=== PATIENT | female | born 1945 | race Caucasian/White ===

== ENCOUNTER 2018-07-12 02:03 | Outpatient (CLI) | payer MEDICARE, OTHER, SELFPAY ==
[2018-07-12 13:14] LABS: CREATININE 0.85 mg/dL (0.55-1.02)
== END 2018-07-12 02:23 ==
DX: K59.9 Functional intestinal disorder, unspecified (principal)
CPT/HCPCS: 36415; 82565

== ENCOUNTER 2018-07-13 01:46 | Outpatient (CLI) | payer MEDICARE, OTHER, SELFPAY ==
--- NOTE | 2018-07-13 08:14 | DI.CT_ITS ---
SYMPTOMS/DIAGNOSIS: BOWEL DYSFUNCTION, ABDOMINAL DISCOMFORT, K59.9, 10.31, 10.32 CT OF THE ABDOMEN AND PELVIS: Comparison is made with November,. There is minimal scarring and bronchiectasis at the medial right lung base, unchanged. There has been interval increase in size of the previously noted hiatal hernia, now moderate in size. The liver, spleen, gallbladder, adrenals are unremarkable. The pancreas is mildly atrophic. Renal cysts are noted. There are no stones or hydronephrosis. The aorta shows mild calcification and is normal in diameter. There is a mild cystocele. A posterior pedunculated uterine fibroid is again noted. The patient is status post appendectomy. There is a normal quantity of stool. There are minimal scattered diverticula, but no evidence of diverticulitis. The small bowel is unremarkable. There is no adenopathy. Severe degenerative changes and scoliosis are again noted in the spine. IMPRESSION: Increased size of hiatal hernia. Mild cystocele.
[2018-07-13] MEDS: Omnipaque 350 MG/ML 50 ML BTL IJ (08:34)
[2018-07-13] MEDS: Omnipaque 350 MG/ML 100 ML BTL IJ (10:01)
[2018-07-13] MEDS: Normal Saline Flush 10 ML SYR IVP (10:02)
== END 2018-07-13 02:06 ==
DX: R10.31 Right lower quadrant pain (principal); R10.32 Left lower quadrant pain; K59.8 Other specified functional intestinal disorders; K44.9 Diaphragmatic hernia without obstruction or gangrene; N81.10 Cystocele, unspecified; K86.89 Other specified diseases of pancreas; D25.9 Leiomyoma of uterus, unspecified
CPT/HCPCS: 74177; J3490; Q9967

== ENCOUNTER 2018-08-23 09:29 | Emergency (ER) | payer MEDICARE, OTHER, SELFPAY ==
[2018-08-23 09:34] VITALS: BP 159/52; PULSE 63; RESP 16; TEMP 36.5; O2SAT 95
[2018-08-23 10:46] LABS: Bilirubin Negative (Negative); Blood Negative (Negative); Clarity Clear; Glucose Negative (Negative); Ketones Negative (Negative); Leukocyte Esterase Negative (Negative); Nitrite Negative (Negative); Urobilinogen 0.2 EU/dL (Up TO 0.2); pH 5.5 (5-8)
--- NOTE | 2018-08-23 14:56 | ED.GENADUL_ITS ---
Discharge Plan Disposition Patient Disposition: HOME Condition: Stable Discharge Details Chief Complaint: Nausea/Vomit/Diar Clinical Impression: Acute diarrhea Primary Care Provider: Shae Webb ED Provider: Arian Fitzpatrick Home Meds and New Rx's Prescriptions: Continued betamethasone, augmented 50 GM cream 50 gm Topical BID Qty: 1 RF: 0 loratadine 10 MG tablet 10 mg PO DAILY PRNQty: 30 RF: 6 Diclofenac Sodium 50 MG TABLET.DR 50 mg PO bid prn Qty: 180 RF: 4 atorvastatin 10 mg tablet 10 mg PO DAILY Qty: 90 RF: 3 fluticasone propionate 50 mcg/actuation spray,suspension 50 mcg NS BID Qty: 1 RF: 6 albuterol sulfate [Proventil HFA] 90 mcg/actuation HFA aerosol inhaler 2 puff IH Q4H PRN (Reason: shortness of breath or wheezing) Qty: 18 RF: 2 Discharge Instructions Instructions: Acute Diarrhea (ED) Additional Instructions: Continue to stay well-hydrated and please collect stool specimen and present to the lab within 2 hours of collecting the specimen. Feel free to return the emergency department if you develop a fever chills, nausea vomiting, abdominal pain or worsening symptoms. Otherwise follow-up with your primary care provider in 1 week for reassessment Referrals: Shae Webb, [employer]VE[employer]MENT [employer] ANALYST [Primary Care Provider] - 1 week Discharge Data Discharge Date/Time-TO BE ENTERED AT DEPARTURE: 08/23/18 15:06 Medical Decision Making two weeks of diarrhea, no other symptoms but seeing white rice-like material, no fever no chills no vomiting no blood no mucus. Plan to obtain a stool specimen otherwise vital signs are stable and see no signs of dehydration and patient stating that she is not having more bowel movements than normal just to change in consistency and appearance. Physical exam unremarkable. Patient attempted to provide specimen but was unable to. Pt. given outpatient orders were given and clear instructions on timeframe patient should present with specimen. Informed patient we will call her with any results that require treatment otherwise after shared decision-making process she refused empiric antibiotics at this time which I feel is reasonable given no fever no chills and benign exam. Patient encouraged to stay well-hydrated and follow-up with primary care provider in 1 week if symptoms have not resolved. Patient was instructed on use of probiotic and daily use. After discussion of diagnosis and plan of care patient has no further needs, questions, or concerns and states clear understanding to return to the emergency department for any worsening symptoms. HPI General Mode of arrival: ambulatory . Date/Time Provider Initiated Documentation: 08/23/18 09:49 . Limitations to Documentation: no limitations . Information obtained by: patient and RN notes reviewed . History of Present Illness 73 year old F presents to the emergency department with the chief complaint of Diarrhea, Quality is described as other (Denies pain), Patient started experiencing this week(s) (2) and it has been constant. No relieving factors improve symptom(s), No exacerbating factors reported . Patient notes no other symptoms.. Patient did receive the following treatments prior to arrival, none Related Data Home Medications Medication Instructions Recorded Confirmed betamethasone, augmented 50 gm TOPICAL BID #1 script 12/01/16 08/23/18 loratadine 10 mg PO DAILY PRN #30 tab-cap 06/09/17 08/23/18 atorvastatin 10 mg tablet 10 mg PO DAILY #90 tab-cap 05/09/18 08/23/18 fluticasone propionate 50 50 mcg NS BID #1 bottle 06/16/18 08/23/18 mcg/actuation nasal spray,suspension albuterol sulfate HFA 90 2 puff IH Q4H PRN #18 gm 06/23/18 08/23/18 mcg/actuation aerosol inhaler Previous Rx's Medication Instructions Recorded atorvastatin 10 mg tablet 10 mg PO DAILY #90 tab-cap 05/09/18 fluticasone propionate 50 50 mcg NS BID #1 bottle 06/16/18 mcg/actuation nasal spray,suspension albuterol sulfate HFA 90 2 puff IH Q4H PRN #18 gm 06/23/18 mcg/actuation aerosol inhaler Allergies Allergy/AdvReac Type Severity Reaction Status Date / Time prochlorperazine Allergy Unknown Verified 08/23/18 09:39 General Stated Complaint: Nausea/Vomit/Diar MARINA: 4 Review of Systems Constitutional Denies chills, Denies fever(s) and Denies poor appetite Cardiovascular Denies chest pain and Denies dyspnea Respiratory Denies cough and Denies dyspnea Gastrointestinal Reports as per HPI, Denies abdominal pain, Denies melena, Denies change in bowel habits, Denies constipation, Reports diarrhea, Denies nausea and Denies vomiting Genitourinary Denies hematuria, Denies urinary incontinence, Denies urinary hesitancy and Denies urinary urgency Integumentary/Breasts Denies rash [facility] Medical History Lumbar facet joint pain (Acute) Idiopathic scoliosis (Acute 04/25/12) Abnormal Papanicolaou smear of cervix with positive human papilloma virus (HPV) test Benign microscopic hematuria Hyperlipidemia Hypertension Ovarian cyst Prolapse of female pelvic organs RLQ abdominal pain Renal cyst, acquired, left Vaginal discharge Surgical History Appendectomy (~1968) Open Carpal Tunnel release (~2007) Skin Cancer Removal (~1991) Family History Mother Neoplasm Father Neoplasm Sister No problems noted. Grandfather No problems noted. Grandfather No problems noted. Grandmother No problems noted. Grandmother No problems noted. Son No problems noted. Daughter No problems noted. Social History Smoking/Tobacco Use Status: Never Drug use: Never Do you feel safe at home: Yes Do you feel safe in your relationship?: Yes Exam Const General: cooperative Orientation: alert, awake and oriented x3 HENMT Mouth: moist mucous membranes Resp Effort & Inspection: normal respiratory effort and able to speak in complete sentences Auscultation: clear to auscultation bilaterally Cardio Rate: regular rate Rhythm: regular rhythm Heart Sounds: S1 normal and S2 normal GI Palpation: soft, no hepatosplenomegaly, not firm, no guarding, no masses, no pulsatile masses, not rigid, no splenomegaly and nontender Auscultation: normal bowel sounds Back/Spine/Pelvis Back: no CVA tenderness Neuro General: alert, awake, oriented x3, gait normal and moves all extremities Course Vital Signs Temperature 36.5 C 08/23/18 09:34 Pulse 63 08/23/18 09:34 Respiratory Rate 16 08/23/18 09:34 Blood Pressure 159/52 H 08/23/18 09:34 Pulse Oximetry 95 08/23/18 09:34 Temperature 36.5 C 08/23/18 09:34 Temperature Source Temporal Artery Scan 08/23/18 09:34 Pulse 63 08/23/18 09:34 Respiratory Rate 16 08/23/18 09:34 Respiratory Effort Non-Labored 08/23/18 09:36 Blood Pressure 159/52 H 08/23/18 09:34 Blood Pressure Position Sitting 08/23/18 09:34 Pulse Oximetry 95 08/23/18 09:34 Oxygen Delivery Method Room Air 08/23/18 09:34 Oxygen Flow Rate 0 08/23/18 09:34 Pain Level 0 08/23/18 09:34 Lab/Test Results Lab/Test Results: 08/23/18 10:27 Stool Clostridioides difficile Screen - Pending Laboratory Tests Range/Units 08/23/18 10:37 Urine Color (Yellow) Yellow Urine Clarity Clear Urine pH (5-8) 5.5 Ur Specific [place] (1.005-1.025) 1.010 Urine Protein (Negative) mg/dL Negative Urine Ketones (Negative) mg/dL Negative Urine Blood (Negative) Negative Urine Nitrite (Negative) Negative Urine Bilirubin (Negative) Negative Urine Urobilinogen (Up TO 0.2) EU/dL 0.2 Ur Leukocyte Esterase (Negative) Negative Urine Glucose (Negative) mg/dL Negative
== END 2018-08-23 15:06 | disposition home or self-care (01) ==
PROVIDERS: Emergency Provider Nurse Practitioner Family
DX: R19.7 Diarrhea, unspecified (principal); I10 Essential (primary) hypertension
CPT/HCPCS: 87329; 87505; 99282; 81003; 87324

== ENCOUNTER 2018-08-24 07:43 | Outpatient (REF) | payer MEDICARE, OTHER, SELFPAY ==
[2018-08-25 10:47] LABS: Campylobacter PCR SEE COMMENTS; Salmonella PCR SEE COMMENTS; Shiga Toxin PCR SEE COMMENTS; Shigella/Enteroinvasive Ecoli SEE COMMENTS
== END 2018-08-24 08:03 ==
LOC: LBN 07:43
PROVIDERS: Visit Provider Nurse Practitioner Family
DX: R19.7 Diarrhea, unspecified (principal)
CPT/HCPCS: 87329; 87505; 82272; 83630; 87177; 87324

== ENCOUNTER 2018-09-05 07:55 | Outpatient (CLI) | payer MEDICARE, OTHER, SELFPAY | END 2018-09-05 08:15 | DX: E78.5 Hyperlipidemia, unspecified (principal) | CPT/HCPCS: 36415; 80053; 80061; 83721; 85027 ==

== ENCOUNTER 2018-09-12 07:00 | Outpatient (REF) | payer MEDICARE, OTHER, SELFPAY | END 2018-09-12 07:20 | LOC: LBN 07:00 | DX: R19.7 Diarrhea, unspecified (principal); R63.4 Abnormal weight loss | CPT/HCPCS: 87177 ==

== ENCOUNTER 2018-09-13 12:50 | Outpatient (REF) | payer MEDICARE, OTHER, SELFPAY ==
[2018-09-14 12:04] LABS: Campylobacter PCR SEE COMMENTS; Salmonella PCR SEE COMMENTS; Shiga Toxin PCR SEE COMMENTS; Shigella/Enteroinvasive Ecoli SEE COMMENTS
== END 2018-09-13 13:10 ==
LOC: LBN 12:50
DX: R19.7 Diarrhea, unspecified (principal); R63.4 Abnormal weight loss
CPT/HCPCS: 87505; 87177

== ENCOUNTER 2018-09-14 13:42 | Outpatient (REF) | payer MEDICARE, OTHER, SELFPAY | END 2018-09-14 14:02 | LOC: LBN 13:42 | DX: R19.7 Diarrhea, unspecified (principal); R63.4 Abnormal weight loss | CPT/HCPCS: 83630; 87177; 87324 ==

== ENCOUNTER 2018-10-18 01:14 | Outpatient (CLI) | payer MEDICARE, OTHER, SELFPAY ==
--- NOTE | 2018-10-18 10:53 | DI.RAD_ITS ---
SYMPTOM/DIAGNOSIS: DUODENAL ULCER WITHOUT BLEEDING, K26.3, ACUTE GASTRIC ULCER WITHOUT BLEEDING, K25.4, ? PERIESOPHAGEAL HERNIA UPPER GI: Fluoroscopy Time: 53 seconds Tongue And Quarter Stitcher view of the abdomen shows increased stool throughout the colon. There is no small bowel dilatation. There is severe scoliosis as well as degenerative changes in the lumbar spine. The patient swallowed barium without difficulty. The esophageal peristalsis appears normal. On the upright images, the GE junction is located in a normal position and a portion of the fundus is seen herniating above the diaphragm. On the supine and prone images, the fundus of the stomach extends through the hiatus. Gastroesophageal reflux was observed during the exam. There is suboptimal gastric coating. No ulcers are identified. There is normal gastric emptying. The proximal small bowel is unremarkable. IMPRESSION: Sliding hiatal hernia and gastroesophageal reflux.
[2018-10-18] MEDS: Barium Sulfate 60% W/V 355 ML BTL PO (11:11)
== END 2018-10-18 01:34 ==
PROVIDERS: Visit Provider Internal Medicine Gastroenterology
DX: K26.3 Acute duodenal ulcer without hemorrhage or perforation (principal); K21.9 Gastro-esophageal reflux disease without esophagitis; K44.9 Diaphragmatic hernia without obstruction or gangrene
CPT/HCPCS: 74247; J3490

== ENCOUNTER 2018-11-11 04:17 | Outpatient (CLI) | payer MEDICARE, OTHER, SELFPAY ==
[2018-11-11 11:13] LABS: ALT 35 U/L (12-78); AST 33 U/L (15-37); Albumin 3.8 g/dL (3.4-5.0); Alkaline Phosphatase 74 U/L (46-116); Anion Gap 9.7 mmol/L (3-11); BUN 16 mg/dL (7-18); CO2 27.3 mmol/L (21.0-32.0); CREATININE 0.83 mg/dL (0.55-1.02); Calcium 9.1 mg/dL (8.5-10.1); Calculated LDL 151 mg/dL; Chloride 107 mmol/L (98-107); Cholesterol 232 mg/dL (50-200); Glucose 87 mg/dL (70-100); HDL Cholesterol 43 mg/dL (40-60); Potassium 4.1 mmol/L (3.5-5.1); Sodium 144 mmol/L (136-145); Total Protein 6.7 g/dL (6.4-8.2); Triglyceride 194 mg/dL (30-150)
== END 2018-11-11 04:37 ==
DX: E78.5 Hyperlipidemia, unspecified (principal); F32.9 Major depressive disorder, single episode, unspecified; I10 Essential (primary) hypertension; K59.9 Functional intestinal disorder, unspecified; N95.2 Postmenopausal atrophic vaginitis; R63.4 Abnormal weight loss
CPT/HCPCS: 36415; 80053; 80061; 83721

== ENCOUNTER 2018-12-07 01:02 | Outpatient (CLI) | payer MEDICARE, OTHER, SELFPAY ==
--- NOTE | 2018-12-07 11:26 | DI.MAMMO_ITS ---
SYMPTOMS/DIAGNOSIS: SCREENING, Z12.31 MAMMOGRAM: Mammograms were interpreted according to the usual protocol including computer analysis with CAD system, tomosynthesis and C view imaging. The breasts are of moderate density with fairly symmetrical distribution of fibroglandular tissue. No dominant mass or clumped microcalcification identified in either breast. Current examination is compared with the previous examinations including August 2016 and there has been no gross interval change in appearance in comparison with the previous studies. CONCLUSION: No specific evidence of malignancy at this time. Routine screening examinations are suggested at yearly intervals in this age group according to the ACS/ACR guidelines. Category 1, breast density category B. MQSA ASSESSMENT OF FINDINGS: Negative. Category 1. Patient will receive a letter notifying them of these results. BI-RADS category B. There are scattered areas of fibroglandular density.
== END 2018-12-07 01:22 ==
DX: Z12.31 Encounter for screening mammogram for malignant neoplasm of breast (principal)
CPT/HCPCS: 77063; 77067

== ENCOUNTER 2018-12-26 11:52 | Outpatient (REF) | payer MEDICARE, OTHER, SELFPAY ==
[2018-12-26 15:38] LABS: Bilirubin Negative (Negative); Blood Negative (Negative); Clarity Clear (Clear); Glucose Negative (Negative); Ketones Negative (Negative); Leukocyte Esterase Large (Negative); Nitrite Negative (Negative); Urobilinogen 0.2 EU/dL (Up TO 0.2)
[2018-12-26 15:43] LABS: C & S Indicated? C&S Done As Ordered
[2018-12-26 16:03] LABS: RBC Negative (0-2); WBC >50 HPF (0-5)
[2018-12-26 16:05] LABS: Bacteria Few HPF (Negative); Casts Negative LPF (Negative); Crystals Negative HPF (Negative); Epithelial Cells Few HPF (Negative); Mucus Negative (Negative)
== END 2018-12-26 12:12 ==
LOC: LBN 11:52
PROVIDERS: Visit Provider Nurse Practitioner Family
DX: R82.90 Unspecified abnormal findings in urine (principal)
CPT/HCPCS: 81003; 81015; 87086

== ENCOUNTER 2019-09-14 02:38 | Outpatient (CLI) | payer MEDICARE, OTHER, SELFPAY ==
--- NOTE | 2019-09-14 06:15 | DI.MRI_ITS ---
EXAM: MR LUMBAR SPINE WO CLINICAL HISTORY: REFERRAL TO PAIN CLINIC AFTER FAILED PT TREATMENT, LUMBAR FACET JOINT PAIN, SCOLIO SIS, BACK PAIN, M19.90, M54.5, M41.20. TECHNIQUE: Multiplanar multisequence MRI of the Lumbar spine was performed. COMPARISON: CR CHEST 2 VIEWS PA,LAT from 10/20/[address] ABDOMEN PELVIS W from 07/13/2018 CR,RF RF upper GI series from 10/18/2018 FINDINGS: The exam is limited by severe scoliosis. Bones: The last intervertebral disc space is designated the L5/S1 level for the numbering purpose of this examination. The vertebral body heights are well kiki ntained. There are several high T1 signal lesions in multiple vertebral bodies, consistent with marquita ngiomas or fatty rests. Cord: The conus tip ends at the T12 L1 level. It is of normal size and signal intensity. T12-L1: Severe loss of disc height and prominent disc osteophytes, eccentric toward the right. No si gnificant central canal stenosis or neural foraminal narrowing. L1-2: Broad-based disc osteophytes and severe disc space narrowing. Severe facet degenerative change s on the left. Severe bilateral neural foraminal narrowing. L2-3: Moderate to severe loss of disc height, eccentric toward the left. Prominent broad-based disc osteophytes, eccentric toward the left. Facet degenerative changes, greater on the left. Mild centr al canal stenosis. Severe left neural foraminal narrowing. L3-4: Severe loss of disc height and broad-based disc osteophytes. Facet degenerative changes and li gamentous hypertrophy combine to produce a moderate degree of central canal stenosis as well as sever e bilateral neural foraminal narrowing. L4-5: Loss of disc height eccentric toward the right. Broad-based disc osteophytes eccentric toward the right. Severe facet degenerative changes, right greater than left, as well as ligamentous hypert rophy. Severe central canal stenosis. L5-S1: Normal disc height. Mild disc bulging. Prominent facet joint degenerative changes. Mild rig ht neural foraminal narrowing. No central canal stenosis. Soft tissues: The visualized SI joints and sacrum are well maintained. The paraspinal soft tissues ar e unremarkable. A left renal cyst is incidentally noted. The aorta is normal in diameter where visua lized. There is significant muscular atrophy involving the paraspinal muscles. IMPRESSION: Severe degenerative disc changes and facet degenerative changes as well as scoliosis. There is multi level neural foraminal narrowing. Central canal stenosis is most severe at L4-5. DATA REPOSITORY:
== END 2019-09-14 02:58 ==
DX: M54.5 Low back pain (principal); M41.27 Other idiopathic scoliosis, lumbosacral region; M51.37 Other intervertebral disc degeneration, lumbosacral region
CPT/HCPCS: 72148

== ENCOUNTER 2019-10-24 14:49 | Outpatient (CLI) | payer MEDICARE, OTHER, SELFPAY ==
--- NOTE | 2019-10-24 06:00 | DI.RAD_ITS ---
EXAM: XR PAIN CLINIC LUMBAR SP 2V CLINICAL HISTORY: Dx: Lumbar Radiculopathy. TECHNIQUE: Fluoroscopy was provided for Dr. Cleveland For guidance with performing injection procedure. COMPARISON: No exams were available for comparison FINDINGS: Please see procedure note for details. Fluoro Time: 27.6 seconds RADIATION DOSE DELIVERED:
[2019-10-24 15:51] VITALS: BP 134/82; PULSE 90; RESP 17; TEMP 37.2; O2SAT 96
--- NOTE | 2019-10-24 16:27 | PDOC.PAIN ---
Pain Clinic Procedure Note Procedure Note Procedure Note: Lumbar Epidural Steroid Injection Procedure Note Pre-operative diagnosis: lumbar spinal stenosis with neurogenic claudication Post-operative diagnosis: same as above COMMENTS: patient has been evaluated in clinic by Ms Sandrine APRN. MRI L spine reviewed which shows canal stenosis most severe at L4-5. Patient reports back pain with radiation down bilateral legs. KURT GALVEZ has been referred to the [facility] for lumbar epidural steroid injection. The patient was greeted by the nurse who verified patients name and . Patient was then taken to the fluoroscopy suite. The patient was interviewed and the medial record reviewed. There were no medical, pharmacologic, radiographic, or other structural contraindications to attempting fluoroscopically guided lumbar epidural steroid injection. Risks and expected side effects as well as potential benefits of the procedure were reviewed and voiced concerns expressed. The patient consent form was signed and witnessed. Standard patient time-out procedure was performed. The patient was placed in the prone position on the fluoroscopy table and automated blood pressure cuff and pulse oximeter applied. The skin entry point for entering/approaching the epidural space by a L5-S1 and marked. Following thorough chlorhexadine preparation of the skin and draping and 1% lidocaine infiltration of the skin entry point and subcutaneous tissues, a 18 gauge 3.5'' Touhy needle was placed under fluoroscopic guidance and with loss of resistance technique into the epidural space. Needle tip placement and depth were aided and confirmed by fluoroscopy. There was no paresthesia or return of blood or CSF through the needle. 1 cc's of Omnipaque 240 was injected with clear epidural spread confirmed with fluoroscopy. 80mg depomedrol was injected. There was not any unusual discomfort expressed by KURT GALVEZ. Patient's vital signs were stable throughout the procedure and were as recorded in nursing records. Follow up plans and appointments were discussed with patient. Post procedure instruction was given as documented in nursing records and having met discharge criteria and was discharged from the [facility]. COMMENTS: If this procedure is helpful, it can be completed up to 3 times per 12 months. please note that due to patient's body habitus, for future injections, please consider 18 gauge 5'' Touhy needle I personally performed the entire procedure. Trudi Cleveland MD Pain Management
[2019-10-24] MEDS: methylPREDNISolone ACETATE 80 MG/ML VIAL IJ (16:53)
[2019-10-24] MEDS: Omnipaque 240 MG/ML 50 ML BTL IJ (16:53)
[2019-10-24 17:02] VITALS: BP 119/87; PULSE 78; RESP 15; O2SAT 97
== END 2019-10-24 15:09 ==
PROVIDERS: Visit Provider Internal Medicine
DX: M48.062 Spinal stenosis, lumbar region with neurogenic claudication (principal)
CPT/HCPCS: 62323; 72100; J1040; Q9967

== ENCOUNTER 2019-12-11 00:45 | Outpatient (CLI) | payer MEDICARE, OTHER, SELFPAY ==
--- NOTE | 2019-12-11 12:50 | DI.MAMMO_ITS ---
EXAM: MG MAMMO SCREENING CLINICAL HISTORY: screening,Z12.39 TECHNIQUE: Mammograms were interpreted according to the usual protocol including computer analysis w [employer] CAD system, tomosynthesis and C-view imaging. COMPARISON: FINDINGS: The breasts are of moderate density with fairly symmetrical distribution of fibroglandular tissue. N o dominant mass or clumped microcalcification is identified in either breast. The current examinatio n is compared with previous examinations including November 2018 and there has been no gross interval c hange in appearance comparison with previous studies. Tiny of focus of questionable architectural di stortion clearly seen only on tomosynthesis views and associated with 2 macrocalcifications is noted in the central portion of the right breast, this is unchanged in comparison previous films dating lane k to 2015. IMPRESSION: No specific evidence of malignancy at this time. Routine screening examinations are suggested at yea rly intervals in this age group according to the ACS ACR guidelines. BI-RADS Category 1 - Negative Breast Density - Category B - Scattered areas of fibroglandular density
== END 2019-12-11 01:05 ==
DX: Z12.31 Encounter for screening mammogram for malignant neoplasm of breast (principal); R92.2 Inconclusive mammogram
CPT/HCPCS: 77063; 77067

== ENCOUNTER 2019-12-12 08:48 | Outpatient (CLI) | payer MEDICARE, OTHER, SELFPAY ==
[2019-12-12 08:56] VITALS: BP 112/70; PULSE 83; RESP 16; TEMP 37.2; O2SAT 94
[2019-12-12] MEDS: Omnipaque 240 MG/ML 50 ML BTL IJ (09:30)
[2019-12-12 09:31] VITALS: BP 134/66; PULSE 90; RESP 16; O2SAT 94
[2019-12-12] MEDS: methylPREDNISolone ACETATE 80 MG/ML VIAL IJ (09:31)
--- NOTE | 2019-12-12 09:31 | DI.RAD_ITS ---
EXAM: XR PAIN CLINIC LUMBAR SP 2V CLINICAL HISTORY: Dx: Lumbar Radiculopathy TECHNIQUE: 2D and realtime digital imaging was performed. Fluoroscopy was provided in the OR COMPARISON: No exams were available for comparison FINDINGS: C-arm fluoroscopy was utilized by Dr. Cleveland during lumbar epidural steroid injection. Hard copy shows m idline injection posteriorly at what appears to be the L5-S1 level. Fluoro time, 31 seconds. IMPRESSION: RADIATION DOSE DELIVERED: Total DLP
--- NOTE | 2019-12-12 09:40 | PDOC.PAIN_ITS ---
Pain Clinic Procedure Note Procedure Note Procedure Note: Lumbar Epidural Steroid Injection Procedure Note Pre-operative diagnosis: lumbar spinal stenosis Post-operative diagnosis: same as above COMMENTS: patient received ~1 week of excellent pain relief from prior L5-S1 LESI, however her back pain returned to baseline. She reports preodminantly back pain, she does have difficulty walking for more than 50 yards but she again expressed that most of her pain is across her lower back. KURT GALVEZ has been referred to the [facility] for lumbar epidural steroid injection. The patient was greeted by the nurse who verified patients name and . Patient was then taken to the fluoroscopy suite. The patient was interviewed and the medial record reviewed. There were no medical, pharmacologic, radiographic, or other structural contraindications to attempting fluoroscopically guided lumbar epidural steroid injection. Risks and expected side effects as well as potential benefits of the procedure were reviewed and voiced concerns expressed. The patient consent form was signed and witnessed. Standard patient time-out procedure was performed. The patient was placed in the prone position on the fluoroscopy table and automated blood pressure cuff and pulse oximeter applied. The skin entry point for entering/approaching the epidural space by L5-S1 and marked. Following thorough chlorhexadine preparation of the skin and draping and 1% lidocaine inf iltration of the skin entry point and subcutaneous tissues, a 5'' Touhy needle was placed under fluoroscopic guidance and with loss of resistance technique into the epidural space. Needle tip placement and depth were aided and confirmed by fluoroscopy. There was no paresthesia or return of blood or CSF through the needle. 1 cc's of Omnipaque 240 was injected with clear epidural spread confirmed with fluoroscopy. 80mg depomedrol was injected. There was not any unusual discomfort expressed by KURT GALVEZ. Patient's vital signs were stable throughout the procedure and were as recorded in nursing records. Follow up plans and appointments were discussed with patient. Post procedure instruction was given as documented in nursing records and having met discharge criteria and was discharged from the [facility]. COMMENTS: If this procedure is helpful, it can be completed up to 3 times per 12 months. I personally performed the entire procedure. Trudi Cleveland MD Pain Management
== END 2019-12-12 09:08 ==
PROVIDERS: Visit Provider Internal Medicine
DX: M48.061 Spinal stenosis, lumbar region without neurogenic claudication (principal)
CPT/HCPCS: 62323; 72100; J1040; Q9967

== ENCOUNTER 2020-01-10 09:41 | Outpatient (REF) | payer MEDICARE, OTHER, SELFPAY ==
[2020-01-15 12:18] LABS: Campylobacter PCR Negative (Negative); Salmonella PCR Negative (Negative); Shiga Toxin PCR Negative (Negative); Shigella/Enteroinvasive Ecoli Negative (Negative)
== END 2020-01-10 10:01 ==
LOC: LBN 09:41
PROVIDERS: Visit Provider Physician Assistant
DX: R19.7 Diarrhea, unspecified (principal)
CPT/HCPCS: 87505; 87324

== ENCOUNTER 2020-01-12 04:02 | Outpatient (CLI) | payer MEDICARE, OTHER, SELFPAY ==
--- NOTE | 2020-01-12 07:15 | DI.RAD_ITS ---
EXAM: XR KNEE RT 3V AP,LAT,WILIAM CLINICAL HISTORY: knee pain, right with edema,M26.561,M25.461,EFFUSION. TECHNIQUE: 2D digital imaging was performed. COMPARISON: CR CHEST 2 VIEWS PA,LAT from 10/20/2017 FINDINGS: Marked degenerative changes are seen in the right knee characterized by joint space narrowing subchon dral sclerosis and periarticular spurring. The findings are most marked in the lateral femoral tibia l joint. There is a small joint effusion present. Soft tissues are otherwise unremarkable. No acut e fracture or dislocation. IMPRESSION: Marked osteoarthritis of the right knee. DATA REPOSITORY: RADIATION DOSE DELIVERED:
== END 2020-01-12 04:22 ==
DX: M17.11 Unilateral primary osteoarthritis, right knee (principal); M25.461 Effusion, right knee
CPT/HCPCS: 73562

== ENCOUNTER 2020-03-04 17:03 | Outpatient (CLI) | payer MEDICARE, OTHER, SELFPAY ==
--- NOTE | 2020-03-04 13:00 | DI.RAD_ITS ---
EXAM: XR ELBOW LT COMPLETE CLINICAL HISTORY: LT ELBOW PAIN,M25.522. TECHNIQUE: 2D digital imaging was performed. COMPARISON: No exams were available for comparison FINDINGS: The patient is status post prior radial head resection. There is marked deformity of the elbow joint with marked joint space narrowing and subchondral sclerosis. The articular surface of the distal hu merus is deformed. No acute fracture or dislocation. No definite effusion. The soft tissues are un remarkable. IMPRESSION: 1. 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 2. Prior resection of the proximal radius. DATA REPOSITORY: RADIATION DOSE DELIVERED:
== END 2020-03-04 17:23 ==
DX: M19.022 Primary osteoarthritis, left elbow (principal)
CPT/HCPCS: 73080

== ENCOUNTER 2020-04-04 09:09 | Emergency (ER) | payer MEDICARE, OTHER, SELFPAY ==
--- NOTE | 2020-04-04 09:00 | RT.EKG_ITS ---
APPROVED REPORT Exam: Resting ECG Patient Location: E HR:85 bpm ECG Measurements Heart Rate 85 AXIS MT 209 P 33 QRSd 94 QRS -1 QT 383 T 10 QTc 455 Conclusion Sinus rhythm...normal P axis, V-rate 60- 99 Multiple ventricular premature complexes...V complexes w/ short R-R intervls Probable left atrial enlargement...P >50mS, <-0.10mV V1 I have reviewed and interpreted ECG and agree with software generated interpretation.
--- NOTE | 2020-04-04 09:05 | ED.GENADUL_ITS ---
Discharge Plan Disposition Patient Disposition: HOME Condition: Improving Discharge Details Clinical Impression: UTI (urinary tract infection), Fall at home, Joint pain Primary Care Provider: Shae Webb ED Provider: Lashell Mcnulty Home Meds and New Rx's Prescriptions: New cephalexin [Keflex] 500 mg capsule 500 mg PO BID 5 Days Qty: 10 RF: 0 Continued acetaminophen [Tylenol] 325 mg tablet 650 mg PO DAILY AM PRNRF: 0 sertraline 100 mg tablet 100 mg PO DAILY Qty: 90 RF: 3 trazodone 50 mg tablet 50 mg PO QHS PRN (Reason: sleep) Qty: 90 RF: 3 atorvastatin 10 mg tablet 10 mg PO DAILY Qty: 90 RF: 3 loratadine 10 mg tablet 10 mg PO DAILY Qty: 90 RF: 3 betamethasone, augmented 0.05 % cream 1 applic Topical BID PRNQty: 1 RF: 0 albuterol sulfate [Proventil HFA] 90 mcg/actuation HFA aerosol inhaler 2 puff IH Q4H PRN (Reason: shortness of breath or wheezing) Qty: 18 RF: 2 fluticasone propionate 50 mcg/actuation spray,suspension 50 mcg NS BID Qty: 1 RF: 6 omega 1-wrd-jji-fish oil [Fish Oil] 1,000 mg (120 mg-180 mg) Capsule 1 cap PO DAILY RF: 0 Discharge Instructions Instructions: Arthralgia (ED), Urinary Tract Infection in Older Adults (ED) Additional Instructions: Drink plenty of fluids and get plenty of rest. Alternate tylenol and motrin as needed and directed for pain. Take the antibiotics until finished. Call your primary care doctor's office today to confirm your follow-up appointment for the next 1 to 2 weeks. You can also discuss whether an outpatient teletypesetter monitor is indicated if your symptoms persist. Return immediately to the emergency department if you develop any worsening or new concerning symptoms. Discharge Data Discharge Date/Time-TO BE ENTERED AT DEPARTURE: 04/04/20 12:15 Discharge Physician: Lashell Mcnulty Medical Decision Making 3606 -- 75yo F with a history of depression, hypertension, hyperlipidemia presents for 2 falls out of bed since last night, without memory of the initial episode. Vitals within normal limits. EKG notes a rate of 85, sinus with PVCs but no acute ST-T wave ischemic changes. She is alert and oriented x3. She has no focal deficits. No evidence of trauma on exam. Differential diagnosis includes acute CVA, seizure, arrhythmia, electrolyte abnormality, dehydration, UTI, pneumonia, medication reaction to trazodone. We will place an IV, bolus IV fluids, screening labs, urinalysis, CT head, chest x-ray and will reassess. 1100 --labs and imaging reviewed. Normal white blood cell count. Troponin neg ative. Urinalysis notes UTI. Chest x-ray and CT head negative for acute findings. Patient reassessed and she is requesting to go home. She was able to ambulate and had no acute complaints. She was given a dose of Keflex for her UTI and prescription for home. Discussed with patient that it is possible to trazodone could be causing some memory issues or increased somnolence which may have led to her fall. She states she would rather continue on with this because it helps her sleep. Patient states she has a follow-up appointment with her pcp in the next 1 to 2 weeks. Also discussed the possibility of outpatient teletypesetter monitor if symptoms persist. Usual and customary return precautions given prior to discharge. Attempted to reach Shae Webb in the office several times but no answer at [facility] per business unit controller. Medical Records Medical records reviewed: Yes I reviewed the patient's medical records. Imaging Data Radiologic Study: Radiologist's impression: CT HEAD WO CLINICAL HISTORY: s/p possible syncopal episode. TECHNIQUE: Imaging Protocol: Axial computed tomography images with coronal and sagittal reformatted images were created and reviewed COMPARISON: CT HEAD WITHOUT CONTRAST from 07/09/2012 FINDINGS: There are no skull fractures nor fluid in the visualized paranasal sinuses. There is no evidence of intracranial hemorrhage, mass effect, or shift of midline structures. There are no extra-axial fluid collections. The ventricles are not enlarged or shifted and there is no blood within the ventricular system nor within the basal cisterns. IMPRESSION: No acute intracranial findings on this noninfused CT scan of the brain.No significant change compared to prior study of 2012 XR CHEST 2V PA LATERAL CLINICAL HISTORY: s/p fall out of bed, r/o acute disease. TECHNIQUE: 2D digital imaging was performed. COMPARISON: CR CHEST 2 VIEWS PA,LAT from 10/20/2017 FINDINGS: Heart size is normal. Tortuous descending thoracic aorta is again noted as is a prominent hiatal hernia. Lungs are clear. No infiltrates nor pleural effusions. Tenting of the right hemidiaphragm is unchanged. IMPRESSION: No acute pulmonary findings. Lab Data Lab results reviewed: Yes I reviewed the patient's lab results. Labs: 04/04/20 11:10 Urine - Reflex from Ua Urine Culture - Pending Laboratory Tests Range/Units 04/04/20 04/04/20 04/04/20 09:28 09:40 09:40 WBC (4.4-10.8) 10^3/uL 9.22 RBC (3.93-5.22) 10^6/uL 4.11 Hgb (11.2-15.7) g/dL 14.4 Hct (36.0-46.0) % 41.5 MCV (80-95) fL 101.0 H MCH (27.0-33.0) pg 35.0 H MCHC (32.0-36.0) % 34.7 RDW (11.7-14.6) % 12.3 Plt Count (130-400) 10^3/uL 189 MPV (8.0-11.0) fL 8.1 Immature Gran % 0.4 Neutrophils % 78.5 Lymphocytes % 11.9 Monocytes % 8.2 Eosinophils % 0.9 Basophils % 0.1 Nucleated RBC % % 0 Absolute Neutrophils (1.2-6.7) 10^3/uL 7.23 H Absolute Lymphocytes (1.2-3.4) 10^3/uL 1.10 L Absolute Monocytes (0.1-0.8) 10^3/uL 0.76 Absolute Eosinophils (0.0-0.7) 10^3/uL 0.08 Absolute Basophils (0.0-0.2) 10^3/uL 0.01 ESR (0-30) mm/hr Sodium (136-145) mmol/L 140 Potassium (3.5-5.1) mmol/L 3.7 Chloride (98-107) mmol/L 104 Carbon Dioxide (21.0-32.0) mmol/L 25.1 Anion Gap (3-11) mmol/L 10.9 BUN (7-18) mg/dL 13 Creatinine (0.55-1.02) mg/dL 0.79 Estimated GFR/1.73 m2 (mL/min/1.73m2) >= 60.00 Glucose (74-106) mg/dL 88 Calcium (8.5-10.1) mg/dL 9.2 Magnesium (1.8-2.4) mg/dL 1.9 Total Bilirubin (0.2-1.0) mg/dL 1.3 H AST (15-37) U/L 24 ALT (14-59) U/L 20 Alkaline Phosphatase (46-116) U/L 98 Creatine Kinase Cancelled 108 Troponin I (<0.06) ng/mL < 0.05 C-Reactive Protein (0.0-0.3) mg/dL Total Protein (6.4-8.2) g/dL 7.4 Albumin (3.4-5.0) g/dL 4.0 Urine Color (Yellow) Urine Clarity (Clear) Urine pH (5-8) Ur Specific Raccoon (1.005-1.025) Urine Protein (Negative) mg/dL Urine Ketones (Negative) mg/dL Urine Blood (Negative) Urine Nitrite (Negative) Urine Bilirubin (Negative) Urine Urobilinogen (Up TO 0.2) EU/dL Ur Leukocyte Esterase (Negative) Urine RBC (0-2) HPF Urine WBC (0-5) HPF Ur Epithelial Cells (Negative) HPF Urine Crystals (Negative) HPF Urine Bacteria (Negative) HPF Urine Casts (Negative) LPF Urine Mucus (Negative) Urine Other (Negative) Ur Culture Indicated? Urine Glucose (Negative) mg/dL Range/Units 04/04/20 04/04/20 04/04/20 09:40 09:40 11:10 WBC (4.4-10.8) 10^3/uL RBC (3.93-5.22) 10^6/uL Hgb (11.2-15.7) g/dL Hct (36.0-46.0) % MCV (80-95) fL MCH (27.0-33.0) pg MCHC (32.0-36.0) % RDW (11.7-14.6) % Plt Count (130-400) 10^3/uL MPV (8.0-11.0) fL Immature Gran % Neutrophils % Lymphocytes % Monocytes % Eosinophils % Basophils % Nucleated RBC % % Absolute Neutrophils (1.2-6.7) 10^3/uL Absolute Lymphocytes (1.2-3.4) 10^3/uL Absolute Monocytes (0.1-0.8) 10^3/uL Absolute Eosinophils (0.0-0.7) 10^3/uL Absolute Basophils (0.0-0.2) 10^3/uL ESR (0-30) mm/hr 16 Sodium (136-145) mmol/L Potassium (3.5-5.1) mmol/L Chloride (98-107) mmol/L Carbon Dioxide (21.0-32.0) mmol/L Anion Gap (3-11) mmol/L BUN (7-18) mg/dL Creatinine (0.55-1.02) mg/dL Estimated GFR/1.73 m2 (mL/min/1.73m2) Glucose (74-106) mg/dL Calcium (8.5-10.1) mg/dL Magnesium (1.8-2.4) mg/dL Total Bilirubin (0.2-1.0) mg/dL AST (15-37) U/L ALT (14-59) U/L Alkaline Phosphatase (46-116) U/L Creatine Kinase Troponin I (<0.06) ng/mL C-Reactive Protein (0.0-0.3) mg/dL 0.25 Total Protein (6.4-8.2) g/dL Albumin (3.4-5.0) g/dL Urine Color (Yellow) Yellow Urine Clarity (Clear) Clear Urine pH (5-8) 6.0 Ur Specific Raccoon (1.005-1.025) 1.025 Urine Protein (Negative) mg/dL Negative Urine Ketones (Negative) mg/dL Negative Urine Blood (Negative) Small H Urine Nitrite (Negative) Negative Urine Bilirubin (Negative) Negative Urine Urobilinogen (Up TO 0.2) EU/dL 0.2 Ur Leukocyte Esterase (Negative) Trace H Urine RBC (0-2) HPF 0-2 Urine WBC (0-5) HPF 10-20 H Ur Epithelial Cells (Negative) HPF Few Urine Crystals (Negative) HPF Negative Urine Bacteria (Negative) HPF Rare Urine Casts (Negative) LPF Negative Urine Mucus (Negative) Moderate Urine Other (Negative) Few transitional Ur Culture Indicated? Yes Urine Glucose (Negative) mg/dL Negative ECG Data Attestation: I personally reviewed and interpreted this ECG (s) as follows: Interpretation: Rate of 85, sinus from a PVCs, no acute ST elevation or depression. SC 209, QRS 94. QTc 455. HPI General Mode of arrival: EMS . Date/Time Provider Initiated Documentation: 04/04/20 09:12 . Limitations to Documentation: no limitations . Information obtained by: patient . HPI Narrative: Patient is a 75-year-old female with a history of depression, hypertension, hyperlipidemia presents after fall out of bed twice since last night. Patient states she does not remember the episode last night but EMS reports that they were called out to her residence for a fall off the couch and she was awake and alert at that time and declined transport. Boyfriend states he found patient on the floor this morning after likely fall out of her bed sometime in the middle the night. Patient does not remember this and states she woke up this morning to note that she was on the floor. She states she was on several blankets and denies any injury. She needed to go to the bathroom but was unable to get up due to weakness and the chronic pain in her shoulders elbows and knees so she scooted on her bottom to the bathroom were EMS arrived this morning. Patient was able to ambulate and get onto the EMS stretcher. She denies any pain from the fall. She states she has no memory of the fall last evening. Boyfriend states she did not fall off the couch last morning but fell out of her bed around 9 or 10 PM and EMS arrived and helped her up back onto the bed. Patient had stopped taking trazodone for several years due to concerns for memory issues but restarted it 1 week ago for her sleep. She states she took a dose around 9 PM last night and then again at 2 AM. She denies any recent illness, fever, headache, blurry vision, dizziness, chest pain, shortness of breath, abdominal pain, nausea, vomiting, diarrhea, urinary symptoms. Related Data Home Medications Medication Instructions Recorded Confirmed betamethasone, augmented 0.05 % 1 applic TOPICAL BID PRN #1 gm 12/26/18 04/04/20 topical cream albuterol sulfate 90 mcg/actuation 2 puff IH Q4H PRN #18 gm 05/22/19 04/04/20 aerosol inhaler fluticasone propionate 50 50 mcg NS BID #1 bottle 05/22/19 04/04/20 mcg/actuation nasal spray,suspension atorvastatin 10 mg tablet 10 mg PO DAILY #90 tab-cap 11/20/19 04/04/20 loratadine 10 mg tablet 10 mg PO DAILY #90 tab-cap 11/20/19 04/04/20 omega 5-zxm-fjo-fish oil [Fish Oil] 1 cap PO DAILY 12/07/19 04/04/20 acetaminophen 325 mg tablet 650 mg PO DAILY AM PRN tab 01/16/20 04/04/20 sertraline 100 mg tablet 100 mg PO DAILY #90 tab 03/25/20 04/04/20 trazodone 50 mg tablet 50 mg PO QHS PRN #90 tab 03/25/20 04/04/20 cephalexin [Keflex] 500 mg PO BID 5 Days #10 cap 04/04/20 Previous Rx's Medication Instructions Recorded albuterol sulfate 90 mcg/actuation 2 puff IH Q4H PRN #18 gm 05/22/19 aerosol inhaler fluticasone propionate 50 50 mcg NS BID #1 bottle 05/22/19 mcg/actuation nasal spray,suspension atorvastatin 10 mg tablet 10 mg PO DAILY #90 tab-cap 11/20/19 loratadine 10 mg tablet 10 mg PO DAILY #90 tab-cap 11/20/19 sertraline 100 mg tablet 100 mg PO DAILY #90 tab 03/25/20 trazodone 50 mg tablet 50 mg PO QHS PRN #90 tab 03/25/20 cephalexin [Keflex] 500 mg PO BID 5 Days #10 cap 04/04/20 Allergies Allergy/AdvReac Type Severity Reaction Status Date / Time prochlorperazine Allergy Unknown Verified 03/25/20 08:38 General MARINA: 4 Review of Systems All systems reviewed & are unremarkable except as noted in HPI and below Constitutional Constitutional: Reports as per HPI, Denies chills and Denies fever(s) Eyes Eyes: Denies blurry vision ENT Ears, Nose, Mouth, and Throat: Denies dizziness, Denies sore throat and Denies throat swelling Cardiovascular Cardiovascular: Denies chest pain and Denies dyspnea Respiratory Respiratory: Denies cough and Denies dyspnea Gastrointestinal Gastrointestinal: Denies abdominal pain, Denies diarrhea and Denies vomiting Genitourinary Genitourinary: Denies hematuria and Denies dysuria Musculoskeletal Musculoskeletal: Denies back pain and Denies numbness Integumentary/Breasts Skin/Breast: Denies lesions and Denies rash Neurologic Neurologic: Denies dizziness, Denies localized weakness and Denies numbness Allergic/Immunologic Allergic/Immunologic: Denies throat swelling [facility] Medical History Abnormal Papanicolaou smear of cervix with positive human papilloma virus (HPV) test Benign microscopic hematuria 09/2014 incidental finding during w/u for abd pain. neg urogram, neg cystoscopy and urine cytology. Depression Elbow pain, left Hyperlipidemia Hypertension Idiopathic scoliosis (04/25/12) Increased body mass index (BMI) Knee effusion, right Lumbar facet joint pain facet arthropathy Memory changes Nasal abrasion Ovarian cyst 01/2015 noted on pelvic u/s (w/u for vaginal discharge) [id number] ovarian - heterogenous. CA = 9. Overweight (05/29/13) Prolapse of female pelvic organs Grade3 cystocele. Renal cyst, acquired, left 2cm - L kidney. No f/u required. RLQ abdominal pain 09/2014. w/u included CT, U/A. Renal cysts diagnosed. No further episodes. Vaginal discharge 2014. 2mm ES on pelvic u/s. Expectant management recommended. Weight loss, unintentional Surgical History Appendectomy (~1968) Open Carpal Tunnel release (~2007) Skin Cancer Removal (~1991) MELANOMA Family History Mother Lung cancer Father Kidney malignancy Sister No problems noted. Maternal Grandfather No problems noted. Paternal Grandfather No problems noted. Maternal Grandmother No problems noted. Paternal Grandmother No problems noted. Son No problems noted. Daughter No problems noted. Social History Smoking/Tobacco Use Status: Former Tobacco Use Smoking risk assessment performed?: Yes Alcohol Intake: current Alcohol Intake frequency: 0-2 drinks per day Alcohol type: hard liquor Drug use: Never Substance use type: does not use Counseling given: No Counseling provided: none Caregiver/Support person: No Household members: none Housing: house Sexually active: No Do you think of yourself as: straight/heterosexual Current gender identity: decline to answer What is your relationship status?: How often do you talk on the phone with friends or family?: twice per week How often do you get together with friends or relatives?: decline to answer How often do you attend catholic or synagogue services?: decline to answer Do you belong to any clubs or organized social groups?: decline to answer Panel score (0-1 are the most socially isolated patients): 0 What type of physical activity do you participate in: decline to answer Duration: decline to answer Frequency: decline to answer Jojo/Episcopalian: Restoration Special jojo needs: No Seatbelt use: always Drive intox or ride w/intox sales route driver: No Do you feel safe at home: Yes Do you feel safe in your relationship?: Yes Exam Const General: cooperative and no acute distress Orientation: alert, awake and oriented x3 HENMT Head: normal to inspection Ears: hearing grossly normal bilaterally, external ears normal and TM's normal bilaterally General nose exam: external nose normal Face and sinus: normal facial exam Mouth: oral mucosae normal Teeth and gingiva: dentition normal Throat: posterior oropharynx normal Eyes General: appearance normal, both eyes and all related structures Eyelids: eyelids normal Pupils: PERRL EOM: EOM intact bilaterally Neck Neck: normal visual inspection Lymphatic: no lymphadenopathy noted Chest Chest: normal inspection of the chest Resp Effort & Inspection: normal respiratory effort and able to speak in complete sentences Auscultation: clear to auscultation bilaterally Cardio Rate: regular rate Rhythm: regular rhythm GI Inspection: normal to inspection Palpation: soft, not firm, no guarding, no hepatosplenomegaly, no masses and nontender Auscultation: normal bowel sounds Back/Spine/Pelvis Back: no CVA tenderness Skin General skin exam: no rashes or lesions noted Neuro General: patient alert, patient awake, moves all extremities, no meningeal signs and no focal motor deficits Cranial Nerves: CN's II-XI intact bilaterally Cognition: normal cognition Speech: speech normal Gait: normal gait Motor: muscle tone normal throughout and strength 5/5 throughout Sensory Exam: no sensory deficits noted Extrem General: normal to inspection, full ROM and capillary refill normal Other: Normal range of motion of bilateral upper and lower extremities without pain, deformity or evidence of trauma. Psych Appearance: grossly normal Mental Status: mental status grossly normal Speech and Movement: speech and movement normal Affect: normal affect Thought Process: normal
[2020-04-04 09:14] VITALS: BP 134/79; PULSE 88; RESP 19; TEMP 36.6; O2SAT 95
[2020-04-04 09:36] VITALS: RESP 18
[2020-04-04] MEDS: Normal Saline Flush 10 ML SYR IVP (09:40)
[2020-04-04] MEDS: Normal Saline 1,000 ML 1000 ML IV (09:55)
[2020-04-04 10:01] LABS: Abs Immature Grans 0.04 10^3/uL (0.0-0.06); Absolute Basophil Count 0.01 10^3/uL (0.0-0.2); Absolute Eosinophil Count 0.08 10^3/uL (0.0-0.7); Absolute Monocyte Count 0.76 10^3/uL (0.1-0.8); Absolute Neutrophil Count 7.23 10^3/uL (1.2-6.7); Basophils % 0.1; Eosinophils % 0.9; HCT 41.5 % (36.0-46.0); HGB 14.4 g/dL (11.2-15.7); Immature Grans % 0.4; Lymphocytes % 11.9; MCHC 34.7 % (32.0-36.0); MPV 8.1 fL (8.0-11.0); Monocytes % 8.2; Neutrophils % 78.5; Nucleated RBC 0 %; Platelet Count 189 10^3/uL (130-400); RBC 4.11 10^6/uL (3.93-5.22); RDW 12.3 % (11.7-14.6); RDW-SD 45.1 fL; WBC 9.22 10^3/uL (4.4-10.8)
[2020-04-04 10:20] VITALS: BP 123/52; PULSE 85; PULSE 87; RESP 16; O2SAT 95
[2020-04-04 10:21] VITALS: PULSE 88; RESP 20; O2SAT 98
--- NOTE | 2020-04-04 10:36 | DI.CT_ITS ---
EXAM: CT HEAD WO CLINICAL HISTORY: s/p possible syncopal episode. TECHNIQUE: Imaging Protocol: Axial computed tomography images with coronal and sagittal reformatted images were created and reviewed COMPARISON: CT HEAD WITHOUT CONTRAST from 07/09/2012 FINDINGS: There are no skull fractures nor fluid in the visualized paranasal sinuses. There is no evidence of intracranial hemorrhage, mass effect, or shift of midline structures. There are no extra-axial fluid collections. The ventricles are not enlarged or shifted and there is no blo od within the ventricular system nor within the basal cisterns. IMPRESSION: No acute intracranial findings on this noninfused CT scan of the brain.No significant change compared to prior study of 2012 RADIATION DOSE DELIVERED: 863.43mGy.cm Total DLP DATA REPOSITORY: All CT scans at this facility are submitted to the National Radiology Data Registry (NRDR) Dose Index Registry (DIR) with the [employer] ([employer]). RADIATION OPTIMIZATION: All CT scans at this facility use at least one of these dose optimization te chniques: automated exposure control; mA and/or kV adjustment per patient size (includes targeted exa ms where dose is matched to clinical indication); or iterative reconstruction.
--- NOTE | 2020-04-04 10:48 | DI.RAD_ITS ---
EXAM: XR CHEST 2V PA LATERAL CLINICAL HISTORY: s/p fall out of bed, r/o acute disease. TECHNIQUE: 2D digital imaging was performed. COMPARISON: CR CHEST 2 VIEWS PA,LAT from 10/20/2017 FINDINGS: Heart size is normal. Tortuous descending thoracic aorta is again noted as is a prominent hiatal her alfonso. Lungs are clear. No infiltrates nor pleural effusions. Tenting of the right hemidiaphragm is unchanged. IMPRESSION: No acute pulmonary findings. DATA REPOSITORY: RADIATION DOSE DELIVERED:
[2020-04-04] MEDS: ACETAMINOPHEN 1,000 MG/100 ML BTL 400 MG IVPB (11:03)
[2020-04-04 11:22] LABS: Bilirubin Negative (Negative); Blood Small (Negative); Clarity Clear (Clear); Glucose Negative (Negative); Ketones Negative (Negative); Leukocyte Esterase Trace (Negative); Nitrite Negative (Negative); Specific Gravity 1.025 (1.005-1.025); Urobilinogen 0.2 EU/dL (Up TO 0.2)
[2020-04-04 11:33] LABS: C-Reactive Protein 0.25 mg/dL (0.0-0.3)
[2020-04-04 11:36] LABS: Epithelial Cells Few HPF (Negative); RBC 0-2 HPF (0-2)
[2020-04-04 11:37] LABS: Bacteria Rare HPF (Negative); C & S Indicated? Yes; Casts Negative LPF (Negative); Crystals Negative HPF (Negative); Mucus Moderate (Negative); Other Cells Few Transitional (Negative)
[2020-04-04 11:44] LABS: ALT 20 U/L (14-59); AST 24 U/L (15-37); Alkaline Phosphatase 98 U/L (46-116); Anion Gap 10.9 mmol/L (3-11); BUN 13 mg/dL (7-18); Bilirubin, Total 1.3 mg/dL (0.2-1.0); CO2 25.1 mmol/L (21.0-32.0); CREATININE 0.79 mg/dL (0.55-1.02); Calcium 9.2 mg/dL (8.5-10.1); Chloride 104 mmol/L (98-107); Creatine Kinase 108 U/L (26-192); Glucose 88 mg/dL (74-106); Magnesium 1.9 mg/dL (1.8-2.4); Potassium 3.7 mmol/L (3.5-5.1); Sodium 140 mmol/L (136-145); Total Protein 7.4 g/dL (6.4-8.2)
[2020-04-04 11:45] LABS: Troponin I < 0.05 ng/mL (<0.06)
[2020-04-04 11:56] LABS: ESR 16 mm/hr (0-30)
[2020-04-04 12:01] VITALS: BP 128/59; PULSE 89; RESP 18; TEMP 36.3; O2SAT 97
[2020-04-04] MEDS: Cephalexin 500 MG CAP PO (12:08)
[2020-04-04] MEDS: Cephalexin 500 MG CAP, 4 CAPS/BTL PO (12:09)
[2020-04-04 12:15] VITALS: BP 128/59; PULSE 89; RESP 18; TEMP 36.3; O2SAT 97
== END 2020-04-04 12:15 | disposition home or self-care (01) ==
LOC: ER 12:11
PROVIDERS: Emergency Provider Physician Assistant
DX: N39.0 Urinary tract infection, site not specified (principal); M25.59 Pain in other specified joint; W06.XXXA Fall from bed, initial encounter; I10 Essential (primary) hypertension
CPT/HCPCS: 36415; 80053; 82550; 85652; 93005; 96361; 96365; 96375; 99285; 70450; 71046; 81003; 81015; 83735; 84484; 85025; 86140; 87086; 93010; J0131

== ENCOUNTER 2020-11-26 22:32 | Emergency (ER) | payer MEDICARE, OTHER, SELFPAY ==
[2020-11-26 22:41] VITALS: BP 128/60; PULSE 71; RESP 18; TEMP 36.4; O2SAT 96
--- NOTE | 2020-11-26 22:54 | ED.GENADUL_ITS ---
Discharge Plan Disposition Patient Disposition: HOME Condition: Stable Discharge Details Clinical Impression: Right knee pain, Osteoarthritis Primary Care Provider: Brandy Fernandez ED Provider: Nivia Puckett Home Meds and New Rx's Prescriptions: Continued acetaminophen [Tylenol] 325 mg tablet 650 mg PO DAILY AM PRNRF: 0 sertraline 100 mg tablet 100 mg PO DAILY Qty: 90 RF: 3 trazodone 50 mg tablet 50 mg PO QHS PRN (Reason: sleep) Qty: 90 RF: 3 atorvastatin 10 mg tablet 10 mg PO DAILY Qty: 90 RF: 3 loratadine 10 mg tablet 10 mg PO DAILY Qty: 90 RF: 3 betamethasone, augmented 0.05 % cream 1 applic Topical BID PRNQty: 1 RF: 0 albuterol sulfate [Proventil HFA] 90 mcg/actuation HFA aerosol inhaler 2 puff IH Q4H PRN (Reason: shortness of breath or wheezing) Qty: 18 RF: 2 fluticasone propionate 50 mcg/actuation spray,suspension 50 mcg NS BID Qty: 1 RF: 6 omega 0-bzw-rtq-fish oil [Fish Oil] 1,000 mg (120 mg-180 mg) Capsule 1 cap PO DAILY RF: 0 celecoxib 100 mg capsule 100 mg RF: 0 Discharge Instructions Instructions: Knee Pain (ED) Additional Instructions: Your exam, history and imaging is most consistent with an exacerbation of your osteoarthritic pain. Please encourage rest, ice, elevation. Tylenol as needed for discomfort. Please take as directed on the packaging. Please continue with your Celebrex. You were injected with local anesthetic as well as steroids today to help with inflammation and discomfort. This may take a few days to potentially few weeks to reach maximal effect. You may continue with brace to help support the knee and also help with discomfort. If you develop fever/chills, increased pain, redness, warmth or other new/worsening symptoms please seek care urgently once again. Otherwise, please keep your upcoming orthopedic appointment. Referrals: Dani Chin [ NON-[facility] STAFF PHYSICIAN] - Brandy Fernandez [Primary Care Provider] - Discharge Data Discharge Date/Time-TO BE ENTERED AT DEPARTURE: 11/27/20 01:35 Medical Decision Making Patient is a pleasant 75-year-old female presenting today with chief complaint of right knee pain. Patient brought in via EMS. Patient reports that she had chronic pain in the right knee but this is greatly exacerbated when she stood and rotated this evening. She did not fall. No direct trauma to the knee. She denies any fevers or chills. No rash. Patient chronically ambulates with a cane and uses a sleeve to support the knee. She does have an upcoming appointment with orthopedics at [facility] for further evaluation of this knee. Patient reports known osteoarthritis. Since the rotational injury, she has had difficulty with ambulation. On exam, patient appears nontoxic. She has a small joint effusion on right knee. She has no erythema or warmth. Ligamentously intact with varus valgus stress testing as well as anterior posterior drawer testing. Patient does have full extension. Flexion is limited but 45 degrees. 2+ distal pulses, sensation is intact. Full range motion of the ankle. Exam and history is most consistent with a arthritis flare secondary to positional movement. I did review the patient's previous x-rays and patient does have a significant lateral joint line narrowing. Will obtain x-ray. Very low suspicion for fracture based on mechanism. Patient was already given Tylenol prior to arrival. Also took Celebrex today. Patient declined ice. FINDINGS: Bones/joints: Moderate degenerative changes are most pronounced in the lateral compartment of the knee. No acute fracture or subluxation. Probably small joint fluid although the lateral views are somewhat over rotated. IMPRESSION: No acute bony pathology Discussed findings with the patient and her family. We discussed treatment options. Discussed RICE, bracing, ortho f/u. We also discussed injection for flair or her arthritic pain. We discussed risks/benefits as well as possible SE and procedural steps. She voices understanding. she would like to move forward with injection of local anesthetic and steroids. Procedural consent obtained. Please see procedure note. This was completed using standard sterile technique. Patient tolerated this well. Had immediate improvement of pain and ROM. Will also apply brace to support the knee and assist with discomfort. Patient ambulated well without assistance. She uses a cane at baseline. return precautions discussed, in particular signs of infection or worsening pain. She has f/u with ortho next month at [facility]. Encouratged RICE. All of her questions and concerns were addressed, she is in agreement with this plan. HPI General Mode of arrival: EMS . Date/Time Provider Initiated Documentation: 08/10/21 22:53 . Limitations to Documentation: no limitations . Information obtained by: patient, family (daughter), RN notes reviewed and old records reviewed . History of Present Illness 75 year old F presents to the emergency department with the chief complaint of right knee pain, described as moderate, with intensity rated at 7. Quality is described as aching, and is localized to the right and lower extremity. Patient reports no radiation. Patient started experiencing this hour(s) and it has been constant. Immobilization improves symptom(s), Movement worsens symptoms . Patient notes no other symptoms.. Patient did receive the following treatments prior to arrival, other (tylenol) Related Data Home Medications Medication Instructions Recorded Confirmed betamethasone, augmented 0.05 % 1 applic TOPICAL BID PRN #1 gm 12/26/18 04/04/20 topical cream albuterol sulfate 90 mcg/actuation 2 puff IH Q4H PRN #18 gm 05/22/19 04/04/20 aerosol inhaler fluticasone propionate 50 50 mcg NS BID #1 bottle 05/22/19 04/04/20 mcg/actuation nasal spray,suspension atorvastatin 10 mg tablet 10 mg PO DAILY #90 tab-cap 11/20/19 04/04/20 loratadine 10 mg tablet 10 mg PO DAILY #90 tab-cap 11/20/19 04/04/20 omega 0-alu-miu-fish oil [Fish Oil] 1 cap PO DAILY 12/07/19 04/04/20 acetaminophen 325 mg tablet 650 mg PO DAILY AM PRN tab 01/16/20 04/04/20 sertraline 100 mg tablet 100 mg PO DAILY #90 tab 03/25/20 04/04/20 trazodone 50 mg tablet 50 mg PO QHS PRN #90 tab 03/25/20 04/04/20 celecoxib 100 mg 11/26/20 Previous Rx's Medication Instructions Recorded albuterol sulfate 90 mcg/actuation 2 puff IH Q4H PRN #18 gm 05/22/19 aerosol inhaler fluticasone propionate 50 50 mcg NS BID #1 bottle 05/22/19 mcg/actuation nasal spray,suspension atorvastatin 10 mg tablet 10 mg PO DAILY #90 tab-cap 11/20/19 loratadine 10 mg tablet 10 mg PO DAILY #90 tab-cap 11/20/19 sertraline 100 mg tablet 100 mg PO DAILY #90 tab 03/25/20 trazodone 50 mg tablet 50 mg PO QHS PRN #90 tab 03/25/20 Allergies Allergy/AdvReac Type Severity Reaction Status Date / Time prochlorperazine Allergy Unknown Verified 03/25/20 08:38 General Stated Complaint: Orthopedic MARINA: 4 Review of Systems Constitutional Constitutional: Reports as per HPI, Denies chills, Denies fever(s), Denies headache(s) and Denies weakness ENT Ears, Nose, Mouth, and Throat: Denies headache(s) Cardiovascular Cardiovascular: Reports as per HPI Respiratory Respiratory: Reports as per HPI and Denies cough Musculoskeletal Musculoskeletal: Reports as per HPI and Denies tingling Integumentary/Breasts Skin/Breast: Reports as per HPI, Denies rash and Denies wounds Neurologic Neurologic: Reports as per HPI, Denies headache(s), Denies tingling, Denies paresthesias and Denies weakness FOR[facility]LY [facility], [facility] Medical History Abnormal Papanicolaou smear of cervix with positive human papilloma virus (HPV) test Benign microscopic hematuria 09/2014 incidental finding during w/u for abd pain. neg urogram, neg cyst oscopy and urine cytology. Depression Elbow pain, left Hyperlipidemia Hypertension Idiopathic scoliosis (04/25/12) Increased body mass index (BMI) Knee effusion, right Lumbar facet joint pain facet arthropathy Memory changes Nasal abrasion Ovarian cyst 01/2015 noted on pelvic u/s (w/u for vaginal discharge) [id number] ovarian - heterogenous. CA = 9. Overweight (05/29/13) Prolapse of female pelvic organs Grade3 cystocele. Renal cyst, acquired, left 2cm - L kidney. No f/u required. RLQ abdominal pain 09/2014. w/u included CT, U/A. Renal cysts diagnosed. No further episodes. Vaginal discharge 2014. 2mm ES on pelvic u/s. Expectant management recommended. Weight loss, unintentional Surgical History Appendectomy (~1968) Open Carpal Tunnel release (~2007) Skin Cancer Removal (~1991) MELANOMA Family History Mother Lung cancer Father Kidney malignancy Sister No problems noted. Maternal Grandfather No problems noted. Paternal Grandfather No problems noted. Maternal Grandmother No problems noted. Paternal Grandmother No problems noted. Son No problems noted. Daughter No problems noted. Social History Smoking/Tobacco Use Status: Former Tobacco Use Smoking risk assessment performed?: Yes Alcohol Intake: current Alcohol Intake frequency: 0-2 drinks per day Alcohol ty pe: hard liquor Drug use: Never Substance use type: does not use Counseling given: No Counseling provided: none Caregiver/Support person: No Household members: none Housing: house Sexually active: No Do you think of yourself as: straight/heterosexual Current gender identity: decline to answer What is your relationship status?: How often do you talk on the phone with friends or family?: twice per week How often do you get together with friends or relatives?: decline to answer How often do you attend yazidi or restorationist services?: decline to answer Do you belong to any clubs or organized social groups?: decline to answer Panel score (0-1 are the most socially isolated patients): 0 What type of physical activity do you participate in: decline to answer Duration: decline to answer Frequency: decline to answer Jojo/Catholic: Worship Special jojo needs: No Seatbelt use: always Drive intox or ride w/intox trolley coach driver: No Do you feel safe at home: Yes Do you feel safe in your relationship?: Yes Exam Const General: cooperative, healthy appearing, uncomfortable, no acute distress, well developed and well groomed Nutritional Appearance: well nourished and overweight Orientation: alert and awake Resp Effort & Inspection: normal respiratory effort, able to speak in complete sentences and no respiratory distress Cardio Rate: regular rate Rhythm: regular rhythm Skin General skin exam: no rashes or lesions noted Lesions: no lesions Rashes: no rashes Trauma: no lacerations or abrasions Neuro General: patient alert and patient awake Cognition: normal cognition Speech: speech normal Gait: gait abnormal (willing to turn and pivot but does not ambulate) Motor: muscle tone normal throughout Sensory Exam: no sensory deficits noted Extrem Knee images: 1. Fairly diffuse discomfort. No point tenderness. No erythema or warmth. No ecchymosis or evidence of trauma. Full extension. Flexion is very limited. No ligamentous laxity is noted. Unable to test meniscus secondary to pain and tension. 2+ distal pulses. Calf is soft and nontender. No pain over the proximal fibula. No pain with palpation over the thigh. Psych Appearance: grossly normal and well kempt Mental Status: mental status grossly normal Speech and Movement: speech and movement normal Course Vital Signs Vital signs: Vital Signs Temperature 36.4 C L 11/26/20 22:41 Pulse 71 11/26/20 22:41 Respiratory Rate 18 11/26/20 22:41 Blood Pressure 128/60 11/26/20 22:41 Pulse Oximetry 96 11/26/20 22:41 Temperature 36.4 C L 11/26/20 22:41 Temperature Source Temporal Artery Scan 11/26/20 22:41 Pulse 71 11/26/20 22:41 Respiratory Rate 18 11/26/20 22:41 Respiratory Effort Non-Labored 11/26/20 22:50 Blood Pressure 128/60 11/26/20 22:41 Blood Pressure Position Supine 11/26/20 22:41 Pulse Oximetry 96 11/26/20 22:41 Oxygen Delivery Method Room Air 11/26/20 22:41 Oxygen Flow Rate 0 11/26/20 22:41 Pain Level 7 11/26/20 22:41 Procedures Joint Aspiration/Injection Joint Asp./Inject. 1: Time Out Performed: Yes Side of body: right Joint Aspirated: knee Ultrasound Guidance: No Skin Prep: Chlorhexidene Local Anesthetic: Lidocaine 1% Amount of anesthesia used (mL): 5 Needle Size Used: 22G Medication Injected, if any: Triamcinolone Acetate Amount of Medication Injected (mls): 1 Patient Tolerated Procedure: well and no complications Complications: none
--- NOTE | 2020-11-26 23:00 | DI.RAD_ITS ---
Exam(s) XR KNEE RT 4V AP,LAT,WILIAM,PAT EXAM: XR KNEE RT 4V AP,LAT,WILIAM,PAT CLINICAL HISTORY: diffuse pain, felt pop. TECHNIQUE: 2D digital imaging was performed. COMPARISON: CR XR KNEE RT 3V AP,LAT,WILIAM from 01/12/2020 FINDINGS: The exam is limited by suboptimal patient positioning. BONES: No definite acute fracture is present. No bony destructive lesion is seen. JOINTS: There are severe degenerative changes of the lateral femoral tibial joint. No joint effusion is seen. SOFT TISSUE: There is anterior soft tissue swelling. IMPRESSION: Limited exam due to suboptimal position. No gross evidence of fracture. DATA REPOSITORY: RADIATION DOSE DELIVERED:
--- NOTE | 2020-11-27 00:22 | DI.VRAD_ITS ---
PROCEDURE INFORMATION: Exam: XR Left Knee Exam date and time: 11/26/2020 23:10 Age: 75 years old Clinical indication: Other: Diffuse pain, felt pop; Additional info: Diffuse pain, felt pop TECHNIQUE: Imaging protocol: XR Left knee. Views: 4 or more views. COMPARISON: No relevant prior studies available. FINDINGS: Bones/joints: Moderate degenerative changes are most pronounced in the lateral compartment of the knee. No acute fracture or subluxation. Probably small joint fluid although the lateral views are somewhat over rotated. IMPRESSION: No acute bony pathology. Dictated and Authenticated by: Kristina Block MD. Ordering:CORY Gonzáles MD
[2020-11-27 01:53] VITALS: BP 128/60; PULSE 71; RESP 18; TEMP 36.4; O2SAT 96
== END 2020-11-27 01:35 | disposition home or self-care (01) ==
PROVIDERS: Emergency Provider Physician Assistant; PCP Family Medicine
DX: M25.561 Pain in right knee (principal); M17.11 Unilateral primary osteoarthritis, right knee
CPT/HCPCS: 99283; 73564; J3490